=== PATIENT | female | born 1985 | race American Indian/Alaskan Native ===

== ENCOUNTER 2017-05-19 16:12 | Emergency (ER) | payer BC ==
[~2017-05-19] VITALS: Ht 170.2 cm; Wt 69.4 kg
[~2017-05-19 16:12] MED LIST: HYDR-569 PO; ONDA4TAB6 PO
[2017-05-19 17:11] VITALS: BP 121/72
[2017-05-20] MEDS ORDERED: AMOX-580 PO (08:43)
[2017-05-20] MEDS ORDERED: TAM75C PO (08:43)
== END 2017-05-19 19:32 | disposition left against medical advice (07) ==
LOC: ER 16:13
DX: G43.909 Migraine, unspecified, not intractable, without status migrainosus (principal); Z53.21 Procedure and treatment not carried out due to patient leaving prior to being seen by health care provider

== ENCOUNTER 2017-05-20 07:02 | Emergency (ER) | payer BC ==
[~2017-05-20] VITALS: Ht 170.2 cm; Wt 70.9 kg
[2017-05-20] MEDS ORDERED: AMOX-580 PO (08:43)
[2017-05-20] MEDS ORDERED: TAM75C PO (08:43)
[2017-05-20 09:13] VITALS: BP 103/57
== END 2017-05-20 09:15 | disposition home or self-care (01) ==
LOC: ER 07:02
DX: J32.9 Chronic sinusitis, unspecified (principal); F12.10 Cannabis abuse, uncomplicated; Z98.890 Other specified postprocedural states
CPT/HCPCS: 87502; 87503; 99284